=== PATIENT | female | born 1950 | race Caucasian/White ===

== ENCOUNTER → 2019-04-01 | Outpatient (CLI) | payer OTHER | LOC: M.RAD 13:46 | DX: M17.0 Bilateral primary osteoarthritis of knee (principal); G89.29 Other chronic pain ==

== ENCOUNTER → 2019-06-10 | Outpatient (CLI) | payer OTHER | LOC: M.RAD 06-03 10:30 | DX: Z12.31 Encounter for screening mammogram for malignant neoplasm of breast (principal) ==

== ENCOUNTER → 2020-03-15 | Outpatient (CLI) | payer MEDICARE | LOC: M.ULTRA 10:30 | DX: R22.1 Localized swelling, mass and lump, neck (principal) ==

== ENCOUNTER → 2020-04-22 | Outpatient (CLI) | payer MEDICARE | LOC: M.CT 04-15 11:00 | DX: K46.9 Unspecified abdominal hernia without obstruction or gangrene (principal); M48.02 Spinal stenosis, cervical region; M25.78 Osteophyte, vertebrae ==